=== PATIENT | female | born 1950 | race Hispanic/Latino ===

== ENCOUNTER 2018-08-24 14:37 | Outpatient (CLI) | payer OTHER ==
--- NOTE | 2018-08-24 15:40 | BD ---
DEXA BONE DENSITY STUDY: History: Post-menopausal. Lumbar Spine: BMD (g/cm2) L1 0.687 T-Score: -2.8 L2 0.750 T-Score: -2.5 L3 0.676 T-Score: -3.7 L4 0.675 T-Score: -3.5 L1-L4 0.696 T-Score: -3.2 Femoral Neck: 0.669 T-Score: -1.6 Total Femur: 0.890 T-Score: -0.4 Impression: Osteopenia of the left femoral neck. Osteoporosis of the lumbar spine. POS: OFF
== END 2018-08-24 14:38 | disposition home or self-care (01) ==
LOC: BICMAMMO 14:37
PROVIDERS: ATTEND Family Medicine
DX: Z12.31 Encounter for screening mammogram for malignant neoplasm of breast (principal); M81.0 Age-related osteoporosis without current pathological fracture; M85.852 Other specified disorders of bone density and structure, left thigh
CPT/HCPCS: 77067; 77080